=== PATIENT | male | born 1955 | race Caucasian/White ===

== ENCOUNTER 2019-07-15 10:21 | Emergency (ER) | payer BC ==
[~2019-07-15] VITALS: Ht 177.8 cm; Wt 90.0 kg
[~2019-07-15 10:21] MED LIST: LISINOP/HCTZ1 TA2 PO; ZOCOR20 M1 PO
[2019-07-15 11:23] LABS: HEMATOCRIT 47.4 % (39.0-50.0); HEMOGLOBIN 15.9 g/dl (14.0-18.0); IMMATURE GRANULOCYTES 0.6 % (0.0-5.0); MEAN CELL VOLUME 93.9 fL CALC (80.0-100.0); MEAN CORPUSCULAR HGB 31.5 pG CALC (26.0-32.0); MEAN CORPUSCULAR HGB CONC 33.5 g/L CALC (32.0-36.0); NEUT# 4.96 thou/uL (1.82-7.42); RED BLOOD COUNT 5.05 mill/uL (4.70-6.10); RED CELL DISTRI WIDTH 13.3 % (11.5-15.5)
[2019-07-15 11:46] LABS: ANION GAP 13 (6-22 (CALC)); BUN 18 mg/dL (8-23); BUN/CREATININE RATIO 15 (12-20 (CALC)); CARBON DIOXIDE 28 mmol/l (22-30); CHLORIDE 102 mmol/l (95-108); CREATININE 1.2 mg/dL (0.7-1.3); GFR > 60 ML/MIN (>=60 (CALC)); GFR FOR AFR.AMER. > 60 ML/MIN (>=60 (CALC)); POTASSIUM 4.5 mmol/l (3.5-5.1); SODIUM 138 mmol/l (137-146)
[2019-07-15] MEDS ORDERED: HYDROCO/APAP1 TA9 PO (12:02)
[2019-07-15 12:13] VITALS: BP 158/89
== END 2019-07-15 12:23 | disposition home or self-care (01) | DRG 950 ==
LOC: ED 10:21
PROVIDERS: Family Medicine
DX: S20.211D Contusion of right front wall of thorax, subsequent encounter (principal); S00.03XD Contusion of scalp, subsequent encounter; I10 Essential (primary) hypertension; F17.210 Nicotine dependence, cigarettes, uncomplicated; W18.30XD Fall on same level, unspecified, subsequent encounter; Z86.73 Personal history of transient ischemic attack (TIA), and cerebral infarction without residual deficits; Z79.01 Long term (current) use of anticoagulants

== ENCOUNTER 2019-07-18 10:45 | Emergency (ER) | payer BC ==
[~2019-07-18] VITALS: Ht 177.8 cm; Wt 90.0 kg
[~2019-07-18 10:45] MED LIST changes: +HYDROCO/APAP1 TA9 PO
[2019-07-18 11:27] LABS: HEMATOCRIT 48.8 % (39.0-50.0); HEMOGLOBIN 16.4 g/dl (14.0-18.0); IMMATURE GRANULOCYTES 0.5 % (0.0-5.0); MEAN CELL VOLUME 93.1 fL CALC (80.0-100.0); MEAN CORPUSCULAR HGB 31.3 pG CALC (26.0-32.0); MEAN CORPUSCULAR HGB CONC 33.6 g/L CALC (32.0-36.0); NEUT# 4.6 thou/uL (1.82-7.42); RED BLOOD COUNT 5.24 mill/uL (4.70-6.10); RED CELL DISTRI WIDTH 13.2 % (11.5-15.5)
[2019-07-18 12:00] LABS: ALBUMIN 4.8 g/dL (3.2-5.0); ALKALINE PHOSPHATASE 78 u/l (38-126); ANION GAP 13 (6-22 (CALC)); BILIRUBIN, TOTAL 0.8 mg/dL (0.0-1.4); BUN 23 mg/dL (8-23); BUN/CREATININE RATIO 20 (12-20 (CALC)); CARBON DIOXIDE 31 mmol/l (22-30); CHLORIDE 99 mmol/l (95-108); CREATININE 1.2 mg/dL (0.7-1.3); GFR > 60 ML/MIN (>=60 (CALC)); GFR FOR AFR.AMER. > 60 ML/MIN (>=60 (CALC)); POTASSIUM 4.3 mmol/l (3.5-5.1); SGOT/AST 29 u/l (19-48); SODIUM 138 mmol/l (137-146)
[2019-07-18 12:12] LABS: MYOGLOBIN 48 ng/mL (0 - 121)
[2019-07-18] MEDS ORDERED: PERCOCET 10/31 COMBO PO (14:16)
[2019-07-18] MEDS ORDERED: ROBITUSSIN AC10 ML PO (14:30)
[2019-07-18 14:31] VITALS: BP 149/91
== END 2019-07-18 14:31 | disposition home or self-care (01) | DRG 185 ==
LOC: ED 10:45
PROVIDERS: Emergency Medicine
DX: S22.41XA Multiple fractures of ribs, right side, initial encounter for closed fracture (principal); K59.00 Constipation, unspecified; I10 Essential (primary) hypertension; F17.210 Nicotine dependence, cigarettes, uncomplicated; W19.XXXA Unspecified fall, initial encounter
CPT/HCPCS: Q9967

== ENCOUNTER 2021-11-05 10:44 | Emergency (ER) | payer MEDICARE ==
[~2021-11-05] VITALS: Ht 177.8 cm; Wt 95.0 kg
[~2021-11-05 10:44] MED LIST changes: +PERCOCET 10/31 COMBO PO; +ROBITUSSIN AC10 ML PO
[2021-11-05 13:37] VITALS: BP 143/78
== END 2021-11-05 13:37 | disposition home or self-care (01) ==
LOC: ED 10:44
DX: M25.511 Pain in right shoulder (principal); I10 Essential (primary) hypertension; F17.200 Nicotine dependence, unspecified, uncomplicated

== ENCOUNTER 2022-06-23 08:44 | Observation (INO) | payer MEDICARE ==
[~2022-06-23] VITALS: Ht 177.8 cm; Wt 88.0 kg
[2022-06-23] VITALS (31 sets, daily range): BP systolic 90–166; BP diastolic 40–85
[2022-06-23] MEDS ORDERED: SIMVASTATIN40 MG PO (08:54)
[2022-06-23] MEDS ORDERED: PLAVIX75 MG PO (08:54)
[2022-06-23] MEDS ORDERED: CIALIS5 MG PO (08:55)
[2022-06-23] MEDS ORDERED: MULTI VIT PO (08:55)
[2022-06-23 09:20] LABS: MEAN CELL VOLUME 88.7 fL CALC (80.0-100.0); MEAN CORPUSCULAR HGB 29.1 pG CALC (26.0-32.0); MEAN CORPUSCULAR HGB CONC 32.8 g/dL CAL (32.0-36.0); NEUT# 3.93 thou/uL (1.82-7.42); RED BLOOD COUNT 4.33 mill/uL (4.70-6.10); RED CELL DISTRI WIDTH 13.3 % (11.5-15.5)
[2022-06-23 09:24] LABS: ALBUMIN 4.3 g/dL (3.2-5.0); ALKALINE PHOSPHATASE 86 u/l (38-126); ANION GAP 11 (6-22 (CALC)); BILIRUBIN, TOTAL 0.6 mg/dL (0.0-1.4); BUN 21 mg/dL (8-23); BUN/CREATININE RATIO 18 (12-20 (CALC)); CARBON DIOXIDE 26 mmol/l (22-30); CHLORIDE 105 mmol/l (95-108); CREATININE 1.1 mg/dL (0.7-1.3); GFR FOR AFR.AMER. > 60 ML/MIN (>=60 (CALC)); GFR OTHER RACES > 60 ML/MIN (>=60 (CALC)); HEMATOCRIT 38.4 % (39.0-50.0); HEMOGLOBIN 12.6 g/dl (14.0-18.0); POTASSIUM 4.1 mmol/l (3.5-5.1); SGOT/AST 32 u/l (19-48); SODIUM 138 mmol/l (137-146); TOTAL PROTEIN 6.9 g/dL (6.3-8.2)
[2022-06-23 09:35] LABS: INTERNATIONAL NORMALIZED RATIO 1.1 RATIO (0.7-1.3); PROTHROMBIN TIME 10.9 SECONDS (9.0-12.5)
[2022-06-23 12:24] LABS: URINE BILIRUBIN - DIPSTICK NEGATIVE (NEGATIVE); URINE BLOOD DIPSTICK NEGATIVE (NEGATIVE); URINE COLOR YELLOW; URINE GLUCOSE - DIPSTICK NEGATIVE (NEGATIVE); URINE KETONE NEGATIVE (NEGATIVE); URINE LEUK ESTERASE NEGATIVE (NEGATIVE); URINE PH 6.5 (4.5-8.0); URINE PROTEIN - DIPSTICK NEGATIVE (NEG-TRACE); URINE UROBILINOGEN - DIPSTICK 0.2 E.U./dL (0.2)
[2022-06-23 12:26] LABS: URINE NITRITE - DIPSTICK NEGATIVE (Negative)
[2022-06-24] VITALS (30 sets, daily range): BP systolic 96–134; BP diastolic 46–108
[2022-06-24 05:29] LABS: HEMATOCRIT 38.3 % (39.0-50.0); HEMOGLOBIN 12.6 g/dl (14.0-18.0); IMMATURE GRANULOCYTES 0.2 % (0.0-5.0); MEAN CELL VOLUME 89.9 fL CALC (80.0-100.0); MEAN CORPUSCULAR HGB 29.6 pG CALC (26.0-32.0); MEAN CORPUSCULAR HGB CONC 32.9 g/dL CAL (32.0-36.0); NEUT# 3.73 thou/uL (1.82-7.42); RED BLOOD COUNT 4.26 mill/uL (4.70-6.10); RED CELL DISTRI WIDTH 13.6 % (11.5-15.5)
[2022-06-24 05:42] LABS: ALBUMIN 3.7 g/dL (3.2-5.0); ALKALINE PHOSPHATASE 78 u/l (38-126); ANION GAP 9 (6-22 (CALC)); BUN 22 mg/dL (8-23); BUN/CREATININE RATIO 22 (12-20 (CALC)); CARBON DIOXIDE 27 mmol/l (22-30); CHLORIDE 107 mmol/l (95-108); GFR FOR AFR.AMER. > 60 ML/MIN (>=60 (CALC)); GFR OTHER RACES > 60 ML/MIN (>=60 (CALC)); POTASSIUM 4.3 mmol/l (3.5-5.1); SGOT/AST 25 u/l (19-48); SODIUM 139 mmol/l (137-146); TOTAL PROTEIN 6.2 g/dL (6.3-8.2)
[2022-06-24 05:45] LABS: BILIRUBIN, TOTAL 0.3 mg/dL (0.0-1.4)
[2022-06-24] MEDS ORDERED: ADLT ASA LOW81 MG PO (14:07)
== END 2022-06-24 15:25 | disposition home or self-care (01) ==
LOC: ED 08:44 → ICU 12:13
PROVIDERS: Internal Medicine; ADMIT Internal Medicine; ATTEND Internal Medicine
DX: G45.9 Transient cerebral ischemic attack, unspecified (principal); I10 Essential (primary) hypertension; Z86.73 Personal history of transient ischemic attack (TIA), and cerebral infarction without residual deficits; Z79.02 Long term (current) use of antithrombotics/antiplatelets; Z20.822 Contact with and (suspected) exposure to COVID-19
CPT/HCPCS: Q9967

== ENCOUNTER 2023-05-08 10:22 | Observation (INO) | payer MEDICARE ==
[~2023-05-08] VITALS: Ht 177.8 cm; Wt 88.4 kg
[2023-05-08] VITALS (23 sets, daily range): BP systolic 92–161; BP diastolic 41–84
[~2023-05-08 10:22] MED LIST changes: +ADLT ASA LOW81 MG PO; +CIALIS5 MG PO; +MULTI VIT PO; +PLAVIX75 MG PO; +SIMVASTATIN40 MG PO
--- NOTE | 2023-05-08 10:25 | NUR ---
PATIENT SEEN IN ER LOBBY RIGHT FACIAL DROOP AND MILD ASPHASIA NOTED. STROKE ALRT CALLED AND PATIENT TRANSPORTED TO RADIOLOGY. NOTIFIED OF PATIENT STATUS. NO OTHER FOCAL NEURO DEFICITS NOTED . PATIENTS LKW 0730 05/08/23
[2023-05-08 10:52] LABS: BASO% 0.5 % (0-3); EOS% 2.5 % (0-8); HEMATOCRIT 40.2 % (39.0-50.0); IMMATURE GRANULOCYTES 0.2 % (0.0-5.0); MEAN CELL VOLUME 89.5 fL CALC (80.0-100.0); MEAN CORPUSCULAR HGB CONC 32.3 g/dL CAL (32.0-36.0); MONO% 7.6 % (2-13); NEUT# 4.24 thou/uL (1.82-7.42); NEUT% 67.2 % (42-76); RED BLOOD COUNT 4.49 mill/uL (4.70-6.10); RED CELL DISTRI WIDTH 13.3 % (11.5-15.5)
[2023-05-08 11:04] LABS: ALBUMIN 4.3 g/dL (3.2-5.0); ALKALINE PHOSPHATASE 86 u/l (38-126); ANION GAP 10 (6-22 (CALC)); BUN 20 mg/dL (8-23); BUN/CREATININE RATIO 19 (12-20 (CALC)); CALCULATED LDLCHOLESTEROL 137 mg/dL (62-129 (CALC)); CARBON DIOXIDE 28 mmol/l (22-30); CHLORIDE 106 mmol/l (95-108); CHOLESTEROL HDL RATIO 4.1 (<4.4 (CALC)); CREATININE 1.1 mg/dL (0.7-1.3); GFR FOR AFR.AMER. > 60 ML/MIN (>=60 (CALC)); GFR OTHER RACES > 60 ML/MIN (>=60 (CALC)); HDL CHOLESTEROL 49 mg/dL (39.0-59.0); POTASSIUM 4.3 mmol/l (3.5-5.1); SGOT/AST 32 u/l (19-48); SODIUM 139 mmol/l (137-146); TOTAL CHOLESTEROL 204 mg/dl (0-199); TOTAL PROTEIN 7.3 g/dL (6.3-8.2); TOTAL TRIGLYCERIDES 87 mg/dl (0-149); VLDL CHOLESTROL 17 mg/dl (4-45 (CALC))
[2023-05-08 11:05] LABS: BILIRUBIN, TOTAL 0.7 mg/dL (0.2-1.3)
--- NOTE | 2023-05-08 11:22 | NUR ---
MRS SCORE 0
--- NOTE | 2023-05-08 12:45 | NUR ---
PATIENT REFUSED TO USE A URINAL. PATIENT WANTED TO AMBULATE TO THE BATHROOM. PATIENT AMBULATED WITHOUT ISSUE. GAIT IS NORMAL
--- NOTE | 2023-05-08 15:37 | NUR ---
PATIENT RESTING. MEND COMPLETED. SLIGHT LEFTSIDED FACIAL DROOP STILL PRESENT. OTHERWISE PAYTIENT HAS RETURNED TO HIS BASELINE. AWAITING ADMISSION ORDERS FGOR THIS PATIENT.
[2023-05-08 15:39] LABS: URINE BILIRUBIN - DIPSTICK Negative (NEGATIVE); URINE BLOOD DIPSTICK Negative (NEGATIVE); URINE COLOR Yellow; URINE GLUCOSE - DIPSTICK Negative (NEGATIVE); URINE KETONE Negative (NEGATIVE); URINE LEUK ESTERASE Negative (NEGATIVE); URINE NITRITE - DIPSTICK Negative (Negative); URINE PROTEIN - DIPSTICK Negative (NEG-TRACE); URINE SPECIFIC GRAVITY 1.025; URINE UROBILINOGEN - DIPSTICK 0.2 E.U./dL (0.2)
[2023-05-08 16:36] LABS: CALCULATED LDLCHOLESTEROL 117 mg/dL (62-129 (CALC)); HDL CHOLESTEROL 46 mg/dL (39.0-59.0); TOTAL CHOLESTEROL 183 mg/dl (0-199); TOTAL TRIGLYCERIDES 102 mg/dl (0-149); VLDL CHOLESTROL 20 mg/dl (4-45 (CALC))
--- NOTE | 2023-05-08 18:18 | NUR ---
[facility] REPORT GIVEN TO HOSSEIN [place]. PATIENT TAKEN TO THE FLOOR.
--- NOTE | 2023-05-08 20:00 | NUR ---
RECEIVED REPORT FROM NURSE HOSSEIN, PATIENT ALERT ORIENTED X 4, AMBULATORY. IV ON LAC G 18 PATENT FLUSHES WELL, HOOKED ON TELEMEYRY SB 53, DENIES PAIN DISCOMFORTS AT THIS TIME, NIH 2, PATIENT STRONG MANAGER METROLOGY, MILD LEFT LIP DROOP, AND PATIENT SOMETIMES TRYING TO SEARCH RIGHT WORD, MRI SCREENING DONE, CALL LIGHT IN REACH.
--- NOTE | 2023-05-08 21:00 | NUR ---
MRI SCREENING DONE, PATIENT REPORTED METAL IN HIS 4TH DIGIT OF HIS RT HAND.
[2023-05-09] VITALS (7 sets, daily range): BP systolic 97–118; BP diastolic 52–67
--- NOTE | 2023-05-09 | NUR ---
PATIENT RESTING IN BED, NO DISCOMFORTS NOTED AT THIS TIME, REPEATED BP AND RECORDED, CALL LIGHT IN REACH,
--- NOTE | 2023-05-09 04:00 | NUR ---
PATIENT RESTING WITH EYES CLOSED, BREATHING EVEN UNLABORED. NOT IN DISTRESS, PATIENT ON ROOM AIR, CALL LIGHT IN REACH.
--- NOTE | 2023-05-09 07:00 | NUR ---
RECEIVED BEDSIDE REPORT FROM QUINTON SHAFER. PT RESTING IN BED WATCHING TV. ALL SAFETY MEASURES IN PLACE, VSS. PT FOR MRI, SPEECH THERAPY TODAY.
[2023-05-09 09:20] LABS: ANION GAP 12 (6-22 (CALC)); BASO% 0.5 % (0-3); BUN 16 mg/dL (8-23); BUN/CREATININE RATIO 15 (12-20 (CALC)); CARBON DIOXIDE 26 mmol/l (22-30); CHLORIDE 107 mmol/l (95-108); EOS% 3.1 % (0-8); GFR FOR AFR.AMER. > 60 ML/MIN (>=60 (CALC)); GFR OTHER RACES > 60 ML/MIN (>=60 (CALC)); HEMATOCRIT 41.1 % (39.0-50.0); HEMOGLOBIN 13.6 g/dl (14.0-18.0); IMMATURE GRANULOCYTES 0.2 % (0.0-5.0); LYMPH% 18.4 % (15-41); MEAN CORPUSCULAR HGB 29.4 pG CALC (26.0-32.0); MEAN CORPUSCULAR HGB CONC 33.1 g/dL CAL (32.0-36.0); MONO% 5.2 % (2-13); NEUT# 4.45 thou/uL (1.82-7.42); NEUT% 72.6 % (42-76); POTASSIUM 3.9 mmol/l (3.5-5.1); RED BLOOD COUNT 4.62 mill/uL (4.70-6.10); RED CELL DISTRI WIDTH 13.3 % (11.5-15.5); SODIUM 141 mmol/l (137-146)
[2023-05-09] MEDS ORDERED: LIPITOR80 M1 PO (18:04)
--- NOTE | 2023-05-09 18:44 | NUR ---
Discharge instructions given. Patient verbalizes understanding of same. Discharged in stable condition via Ambulatory to Home with spouse. All belongings sent with pt. IV catheter removed. Pt tolerated well.
== END 2023-05-09 18:42 | disposition home or self-care (01) ==
LOC: ED 10:22 → ED-I 14:31 → ED 14:31 → ED-I 15:00 → ED 16:37 → MS2 16:38
PROVIDERS: Family Medicine; ADMIT Student in an Organized Health Care Education/Training Program; ATTEND Student in an Organized Health Care Education/Training Program
DX: I65.23 Occlusion and stenosis of bilateral carotid arteries (principal); I10 Essential (primary) hypertension; Z86.73 Personal history of transient ischemic attack (TIA), and cerebral infarction without residual deficits; Z79.02 Long term (current) use of antithrombotics/antiplatelets
CPT/HCPCS: Q9967